=== PATIENT | male | born 1975 | race Caucasian/White ===

== ENCOUNTER 2016-12-05 18:12 | Emergency (ER) | payer BC, OTHER ==
[~2016-12-05] VITALS: Ht 172.7 cm; Wt 104.3 kg
[2016-12-05] MEDS ORDERED: RAMI10CA PO (18:21)
[2016-12-05] MEDS ORDERED: OMEP40CA2 PO (18:21)
[2016-12-05] MEDS ORDERED: METF500T4 PO (18:21)
--- NOTE | 2016-12-05 19:10 | ED PDOC ---
Post-Departure Follow-Up Patient presents to the ED for evaluation of an abscess in the right groin area. He states he initially noted a "bump" 3 days ago. His pulled out a couple of hairs that appeared ingrown. Since then, the area has grown in size and redness. He denies any fever but states he doesn't feel well. The remainder of his H&P and ROS are as noted on the T-sheet. The area was outlined , with a skin marker, for easier objective serial exams. CBC, BMP, ESR, CRP were obtained to evaluate severity of infection. He was medicated with Bactrim DS and Keflex. FRANCISCO OWENS. CARLTON Dec 05, 2016 19:10
[2016-12-05] MEDS ORDERED: CEPHALEXIN 500 MG CAP PO ONE (19:15)
[2016-12-05] MEDS ORDERED: BACTRIM 160MG/800MG DS TAB PO ONE (19:15)
[2016-12-05 19:37] LABS: BASO % 0.3 % (0.0-1.0); EOS # 0.2 K/mm3 (0.0-0.50); LARGE UNSTAINED CELL # 0.2 K/mm3 (0.0-0.4); LARGE UNSTAINED CELL % 1.5 % (0.0-4.0); LYMPH # 2.8 K/mm3 (1.5-4.5); LYMPH % 22.6 % (24.0-44.0); MEAN CORPUSCULAR HEMOGLOBIN 31.5 pg (27.0-33.0); MEAN CORPUSCULAR HGB CONC 34.3 g/dl (32.0-36.5); MONO # 0.7 K/mm3 (0.0-0.8); MONO % 6.2 % (0.0-5.0); NEUTROPHILS # 7.9 K/mm3 (1.8-7.7); NEUTROPHILS % 67.4 % (36.0-66.0); PLATELET COUNT, AUTOMATED 201 k/mm3 (150-450); RED CELL DISTRIBUTION WIDTH 13.2 % (11.5-14.5); WHITE BLOOD COUNT 11.7 K/mm3 (4.0-10.0)
[2016-12-05 19:46] LABS: ANION GAP 6 MEQ/L (8-16); BLOOD UREA NITROGEN 13 MG/DL (7-18); CALCIUM LEVEL 9.1 MG/DL (8.5-10.1); CARBON DIOXIDE LEVEL 30 MEQ/L (21-32); CHLORIDE LEVEL 101 MEQ/L (98-107); CREATININE FOR GFR 0.82 MG/DL (0.70-1.30); GLOMERULAR FILTRATION RATE > 60.0 (>60); GLUCOSE, FASTING 126 MG/DL (70-105); POTASSIUM SERUM 4.1 MEQ/L (3.5-5.1); SODIUM LEVEL 137 MEQ/L (136-145)
[2016-12-05 19:55] LABS: ERYTHROCYTE SEDIMENTATION RATE 26 mm/hr (0-15)
[2016-12-05] MEDS ORDERED: KEFL500C7 PO (20:13)
[2016-12-05] MEDS ORDERED: BACT800T5 PO (20:13)
--- NOTE | 2016-12-05 20:17 | ED PDOC ---
Post-Departure Follow-Up Discussed lab results and discharge plan with the patient. Instructed to monitor abscess and return to the ED if it gets larger, more painful, he runs a fever. Prescribed Bactrim DS and Keflex. Advised to use Ibuprofen and Tylenol as needed for pain. Questions answered. Patient states understanding to the instructions. FRANCISCO OWENS Dec 05, 2016 20:17
[2016-12-05 20:41] VITALS: BP 147/77
== END 2016-12-05 20:51 | disposition home or self-care (01) ==
LOC: M ED 19:17
DX: L02.214 Cutaneous abscess of groin (principal); L03.313 Cellulitis of chest wall; E11.9 Type 2 diabetes mellitus without complications; Z79.84 Long term (current) use of oral hypoglycemic drugs; Z79.899 Other long term (current) drug therapy; Z88.8 Allergy status to other drugs, medicaments and biological substances

== ENCOUNTER 2017-02-18 17:41 | Emergency (ER) | payer BC ==
[~2017-02-18] VITALS: Ht 172.7 cm; Wt 109.1 kg
[~2017-02-18 17:41] MED LIST: BACT800T5 PO; KEFL500C17 PO; METF500T4 PO; OMEP40CA2 PO; RAMI10CA PO
[2017-02-18] MEDS ORDERED: LIDOCAINE 2% MDV 20 ML VIAL SC ONE (19:45)
[2017-02-18] MEDS ORDERED: PERCOCET 5MG/325MG TAB PO ONE (19:45)
[2017-02-18 20:37] VITALS: BP 138/76
== END 2017-02-18 20:58 | disposition home or self-care (01) ==
LOC: M ED 17:41
DX: L02.214 Cutaneous abscess of groin (principal); E11.9 Type 2 diabetes mellitus without complications; I10 Essential (primary) hypertension; K21.9 Gastro-esophageal reflux disease without esophagitis; Z79.899 Other long term (current) drug therapy; Z79.84 Long term (current) use of oral hypoglycemic drugs; Z79.2 Long term (current) use of antibiotics

== ENCOUNTER 2017-02-20 18:14 | Emergency (ER) | payer BC ==
[~2017-02-20] VITALS: Ht 172.7 cm; Wt 109.1 kg
[2017-02-20] MEDS ORDERED: BACTRIM 160MG/800MG DS TAB PO ONE (21:15)
[2017-02-20] MEDS ORDERED: IBUPROFEN 800 MG TAB PO ONE (21:30)
[2017-02-20] MEDS ORDERED: BACT800T5 PO (22:19)
[2017-02-20] MEDS ORDERED: HYDR-3713 PO (22:19)
--- NOTE | 2017-02-20 22:20 | REPUSA ---
Clinical history: right groin abscess. Findings: Real-time ultrasound imaging of the right groin region was performed. Normal heterogeneous fibroglandular tissue is noted. No focal defined mass or cystic lesion is appreciated. No evidence of calcifications are appreciated. No other gross abnormalities. Impression: Unremarkable examination. No abscess or fluid collection is identified.
[2017-02-20 22:24] VITALS: BP 149/78
[2017-02-20] MEDS ORDERED: NORCO 5/325MG TABLET (BULK FOR ED) PO ONE (22:30)
== END 2017-02-20 22:31 | disposition home or self-care (01) ==
LOC: M ED 18:14
DX: L03.314 Cellulitis of groin (principal); A49.02 Methicillin resistant Staphylococcus aureus infection, unspecified site; E11.9 Type 2 diabetes mellitus without complications; I10 Essential (primary) hypertension; K21.9 Gastro-esophageal reflux disease without esophagitis; E66.9 Obesity, unspecified; Z79.899 Other long term (current) drug therapy; Z79.2 Long term (current) use of antibiotics; Z79.84 Long term (current) use of oral hypoglycemic drugs

== ENCOUNTER 2017-03-13 11:37 | Outpatient (CLI) | payer BC ==
[~2017-03-13] VITALS: Ht 172.7 cm; Wt 108.9 kg
[~2017-03-13 11:37] MED LIST changes: +HYDR-3713 PO
[2017-03-13] MEDS ORDERED: NS 1,000 ML IV ONE (11:45)
[2017-03-13] MEDS ORDERED: LIDOCAINE 2% INJ 100 MG/5 ML SDV (FOR ANES.) As Ordered ONE ×2 (13:20→13:41)
[2017-03-13] MEDS ORDERED: PROPOFOL 200 MG/20 ML VIAL As Ordered ONE ×2 (13:20→13:38)
--- NOTE | 2017-03-13 13:47 | ROOR ---
Patient Name: Walter Cisneros Procedure Date: 03/13/2017 1:05 PM Date of : 1975 Age: 41 Room: [facility] Gender: Male Note Status: Finalized Procedure: Upper GI endoscopy Indications: Suspected esophageal reflux Providers: Rio Kathleen MD Referring MD: Gregor Martin NP Requesting Provider: Medicines: Monitored Anesthesia Care Complications: No immediate complications. Procedure: Pre-Anesthesia Assessment: - Prior to the procedure, a History and Physical was performed, and patient medications and allergies were reviewed. The patient is competent. The risks and benefits of the procedure and the sedation options and risks were discussed with the patient. All questions were answered and informed consent was obtained. Patient identification and proposed procedure were verified by the physician, the nurse and the window shade ring sewer in the procedure room. Mental Status Examination: alert and oriented. Airway Examination: normal oropharyngeal airway and neck mobility. Respiratory Examination: clear to auscultation. CV Examination: normal. Prophylactic Antibiotics: The patient does not require prophylactic antibiotics. Prior Anticoagulants: The patient has taken no previous anticoagulant or antiplatelet agents. ASA Grade Assessment: II - A patient with mild systemic disease. After reviewing the risks and benefits, the patient was deemed in satisfactory condition to undergo the procedure. The anesthesia plan was to use monitored anesthesia care (MAC). Immediately prior to administration of medications, the patient was re-assessed for adequacy to receive sedatives. The heart rate, respiratory rate, oxygen saturations, blood pressure, adequacy of pulmonary ventilation, and response to care were monitored throughout the procedure. The physical status of the patient was re-assessed after the procedure. The Endoscope was introduced through the mouth, and advanced to the second part of duodenum. The upper GI endoscopy was accomplished without difficulty. The patient tolerated the procedure well. Findings: The examined esophagus was normal. Two biopsies were obtained in the lower third of the esophagus with cold forceps for histology. Verification of patient identification for the specimen was done by the physician and nurse using the patient's name, date and medical record number. Estimated blood loss was minimal. Localized mild inflammation characterized by erythema and granularity was found in the gastric antrum. Biopsies were taken with a cold forceps for histology. The duodenal bulb and second portion of the duodenum were normal. Impression: - Normal esophagus. - Gastritis. Biopsied. - Normal duodenal bulb and second portion of the duodenum. - Two biopsies were obtained in the lower third of the esophagus. Recommendation: - Patient has a contact number available for emergencies. The signs and symptoms of potential delayed complications were discussed with the patient. Return to normal activities tomorrow. Written discharge instructions were provided to the patient. - Resume previous diet. - Continue present medications. - Return to GI clinic as previously scheduled on 03/27/2017 at 8:30 AM. - Return to primary care physician. Rio Kathleen MD Rio Kathleen MD 03/13/2017 1:47:29 PM This report has been signed electronically. Number of Addenda: 0 Note Initiated On: 03/13/2017 1:05 PM Estimated Blood Loss: Estimated blood loss was minimal.
--- NOTE | 2017-03-13 13:52 | ROOR ---
Patient Name: Walter Cisneros Procedure Date: 03/13/2017 1:06 PM Date of : 1975 Age: 41 Room: [facility] Gender: Male Note Status: Finalized Procedure: Colonoscopy Indications: Follow-up of diverticulitis Providers: Rio Kathleen MD Referring MD: Gregor Martin NP Requesting Provider: Medicines: Monitored Anesthesia Care Complications: No immediate complications. Procedure: Pre-Anesthesia Assessment: - Prior to the procedure, a History and Physical was performed, and patient medications and allergies were reviewed. The patient is competent. The risks and benefits of the procedure and the sedation options and risks were discussed with the patient. All questions were answered and informed consent was obtained. Patient identification and proposed procedure were verified by the physician, the nurse and the engineering and operations director in the procedure room. Mental Status Examination: alert and oriented. Airway Examination: normal oropharyngeal airway and neck mobility. Respiratory Examination: clear to auscultation. CV Examination: normal. Prophylactic Antibiotics: The patient does not require prophylactic antibiotics. Prior Anticoagulants: The patient has taken no previous anticoagulant or antiplatelet agents. ASA Grade Assessment: II - A patient with mild systemic disease. After reviewing the risks and benefits, the patient was deemed in satisfactory condition to undergo the procedure. The anesthesia plan was to use monitored anesthesia care (MAC). Immediately prior to administration of medications, the patient was re-assessed for adequacy to receive sedatives. The heart rate, respiratory rate, oxygen saturations, blood pressure, adequacy of pulmonary ventilation, and response to care were monitored throughout the procedure. The physical status of the patient was re-assessed after the procedure. The Colonoscope was introduced through the anus and advanced to the cecum, identified by appendiceal orifice and ileocecal valve. The colonoscopy was performed without difficulty. The patient tolerated the procedure well. The quality of the bowel preparation was good. The ileocecal valve, appendiceal orifice, and rectum were photographed. Scope insertion time was 4 minutes. Scope withdrawal time was 10 minutes. The total duration of the procedure was 15 minutes. Findings: The perianal and digital rectal examinations were normal. A 10 mm polyp was found in the sigmoid colon. The polyp was sessile. The polyp was removed with a hot snare. Resection and retrieval were complete. Verification of patient identification for the specimen was done by the physician and nurse using the patient's name, date and medical record number. To close a defect after polypectomy, one hemostatic clip was successfully placed. There was no bleeding at the end of the procedure. Two sessile polyps were found in the rectum. The polyps were 3 to 4 mm in size. These polyps were removed with a jumbo cold forceps. Resection and retrieval were complete. Multiple small and large-mouthed diverticula were found in the sigmoid colon. There was no evidence of diverticular bleeding. Non-bleeding external and internal hemorrhoids were found during retroflexion. The hemorrhoids were small. Impression: - One 10 mm polyp in the sigmoid colon, removed with a hot snare. Resected and retrieved. Clip was placed. - Two 3 to 4 mm polyps in the rectum, removed with a jumbo cold forceps. Resected and retrieved. - Moderate diverticulosis in the sigmoid colon. There was no evidence of diverticular bleeding. - Non-bleeding external and internal hemorrhoids. Recommendation: - Patient has a contact number available for emergencies. The signs and symptoms of potential delayed complications were discussed with the patient. Return to normal activities tomorrow. Written discharge instructions were provided to the patient. - High fiber diet. - Continue present medications. - Await pathology results. - Repeat colonoscopy in 3 - 5 years for surveillance based on pathology results. - Return to GI clinic as previously scheduled on 03/27/2017 at 8:30 AM. - Return to primary care physician. Rio Kathleen MD Rio Kathleen MD 03/13/2017 1:52:08 PM This report has been signed electronically. Number of Addenda: 0 Note Initiated On: 03/13/2017 1:06 PM Estimated Blood Loss: Estimated blood loss was minimal.
[2017-03-13 14:10] VITALS: BP 153/93
== END 2017-03-13 14:32 | disposition home or self-care (01) ==
LOC: M OPP 11:37
PROVIDERS: ATTEND Internal Medicine Gastroenterology
DX: K63.5 Polyp of colon (principal); K62.1 Rectal polyp; K57.30 Diverticulosis of large intestine without perforation or abscess without bleeding; K64.8 Other hemorrhoids; K21.9 Gastro-esophageal reflux disease without esophagitis; K29.70 Gastritis, unspecified, without bleeding; I10 Essential (primary) hypertension; R06.83 Snoring; Z88.8 Allergy status to other drugs, medicaments and biological substances; Z79.84 Long term (current) use of oral hypoglycemic drugs; Z79.899 Other long term (current) drug therapy

== ENCOUNTER 2017-03-31 20:11 | Emergency (ER) | payer BC ==
[~2017-03-31] VITALS: Ht 172.7 cm; Wt 109.1 kg
--- NOTE | 2017-03-31 22:00 | REPUSA ---
Clinical history: Pain. Findings: Real-time ultrasound imaging of the testicles and scrotum was performed. The right testicle measures 4.5 x 2.5 x 3.6 cm. The left testicle measures 4.7 x 2.8 x 3.6 cm. The testicles demonstrat e normal echo texture and echogenicity. Normal color Doppler flow and arterial waveforms are seen faye aterally. There are small bilateral hydroceles appreciated. Impression: Unremarkable ultrasound examination of the testicles. Small bilateral hydroceles.
[2017-03-31 23:46] VITALS: BP 158/93
== END 2017-03-31 23:47 | disposition home or self-care (01) ==
LOC: M ED 20:11
DX: N50.812 Left testicular pain (principal); E11.9 Type 2 diabetes mellitus without complications; R03.0 Elevated blood-pressure reading, without diagnosis of hypertension; Z79.84 Long term (current) use of oral hypoglycemic drugs; Z79.899 Other long term (current) drug therapy; Z88.8 Allergy status to other drugs, medicaments and biological substances; Z87.19 Personal history of other diseases of the digestive system

== ENCOUNTER 2018-08-12 18:17 | Emergency (ER) | payer BC ==
[~2018-08-12] VITALS: Ht 172.7 cm; Wt 104.5 kg
[~2018-08-12 18:17] MED LIST changes: -RAMI10CA PO; +RAMI1CAP26 PO
[2018-08-12 18:18] VITALS: BP 146/70
[2018-08-12] MEDS ORDERED: ATOR1TAB19 (18:23)
[2018-08-12] MEDS ORDERED: SOMA350T PO ×2 (19:08)
[2018-08-12] MEDS ORDERED: IBUP-1022 PO (19:08)
== END 2018-08-12 19:14 | disposition home or self-care (01) ==
LOC: M ED 18:17
DX: M54.5 Low back pain (principal); I10 Essential (primary) hypertension; K21.9 Gastro-esophageal reflux disease without esophagitis; Z79.899 Other long term (current) drug therapy; Z88.8 Allergy status to other drugs, medicaments and biological substances

== ENCOUNTER → 2019-08-11 | Outpatient (REF) | payer BC ==
[~2019-08-11] MED LIST changes: +ATOR1TAB19; +IBUP-1022 PO; +METF-791 PO; -METF500T4 PO; -OMEP40CA2 PO; +OMEP40CA97 PO; +SOMA350T PO
== END ==
LOC: M SFHCPLAZ 14:19
DX: Z76.89 Persons encountering health services in other specified circumstances (principal); Z13.1 Encounter for screening for diabetes mellitus; Z71.89 Other specified counseling

== ENCOUNTER → 2020-08-17 | Outpatient (REF) | payer BC ==
[~2020-08-17] MED LIST changes: -METF-791 PO; +METF-838 PO
== END ==
LOC: M SFHCPLAZ 11:11
PROVIDERS: ATTEND Family Medicine
DX: Z00.00 Encounter for general adult medical examination without abnormal findings (principal); Z71.89 Other specified counseling; Z13.1 Encounter for screening for diabetes mellitus

== ENCOUNTER → 2021-08-05 | Outpatient (CLI) | payer BC ==
[~2021-08-05] MED LIST changes: +ATOR40TA75 PO; +CHLO125TA PO; +IBUP80TA PO; +METF-818 PO; +OMEP-173 PO; +OMEP40CA4 PO; -OMEP40CA97 PO; +RAMI1CAP24 PO; +TRUL10IN SC
== END ==
LOC: M LABSMTC 09:25
PROVIDERS: ATTEND Anesthesiology
DX: Z01.812 Encounter for preprocedural laboratory examination (principal); Z11.52 Encounter for screening for COVID-19

== ENCOUNTER 2021-08-09 06:21 | Day surgery (SDC) | payer BC ==
[~2021-08-09] VITALS: Ht 172.7 cm; Wt 102.5 kg
[~2021-08-09 06:21] MED LIST changes: +NS 1,000 ML IV ONE
[2021-08-09] MEDS ORDERED: LIDOCAINE 2% 100MG/5ML SDV (FOR ANES.) As Ordered ONE (06:32)
[2021-08-09] MEDS ORDERED: propofoL 200 MG/20 ML VIAL As Ordered ONE (06:32)
[2021-08-09 08:25] VITALS: BP 127/79
== END 2021-08-09 08:36 | disposition home or self-care (01) ==
LOC: M OPP 06:21
PROVIDERS: ATTEND Internal Medicine Gastroenterology
DX: Z12.11 Encounter for screening for malignant neoplasm of colon (principal); Z80.0 Family history of malignant neoplasm of digestive organs; K62.1 Rectal polyp; K57.30 Diverticulosis of large intestine without perforation or abscess without bleeding; K64.8 Other hemorrhoids; E11.9 Type 2 diabetes mellitus without complications; Z79.84 Long term (current) use of oral hypoglycemic drugs; Z79.899 Other long term (current) drug therapy; Z88.6 Allergy status to analgesic agent

== ENCOUNTER 2023-05-15 15:47 | Emergency (ER) | payer BC ==
[~2023-05-15] VITALS: Ht 172.7 cm; Wt 99.1 kg
[~2023-05-15 15:47] MED LIST changes: -NS 1,000 ML IV ONE
[2023-05-15] MEDS ORDERED: methocarbamoL 500 MG TAB PO ONE (16:35)
[2023-05-15] MEDS ORDERED: ACETAMINOPHEN *IV* 1,000 MG in IV 1 EA IV ONE (16:35)
[2023-05-15 16:59] VITALS: BP 133/72; TEMP 98.4; O2SAT 93
[2023-05-15 17:21] LABS: BASO % 0.2 % (0.0-1.0); HEMATOCRIT 44.7 % (42.0-52.0); HEMOGLOBIN 15.4 g/dl (13.5-17.5); LYMPH # 1.3 10^3/uL (1.5-5.0); LYMPH % 11.6 % (24.0-44.0); MEAN CORPUSCULAR HEMOGLOBIN 31.5 pg (27.0-33.0); MEAN CORPUSCULAR HGB CONC 34.5 g/dl (32.0-36.5); MEAN CORPUSCULAR VOLUME 91.4 fl (80.0-96.0); MONO # 0.6 10^3/uL (0.0-0.8); MONO % 5.4 % (2.0-8.0); NEUTROPHILS # 9.5 10^3/uL (1.5-8.5); NEUTROPHILS % 82.5 % (36.0-66.0); PLATELET COUNT, AUTOMATED 255 10^3/uL (150-450); RED BLOOD COUNT 4.89 10^6/uL (4.30-6.10); WHITE BLOOD COUNT 11.5 10^3/uL (4.0-10.0)
[2023-05-15 17:29] LABS: LIPASE 32 U/L (12-53)
[2023-05-15 17:31] LABS: ALBUMIN 3.9 G/DL (3.2-5.2); ALKALINE PHOSPHATASE 102 U/L (46-116); ALT/SGPT 36 U/L (7.0-40); AST/SGOT 16 U/L (<34); BILIRUBIN,DIRECT 0.1 MG/DL (<0.4); BILIRUBIN,TOTAL 0.4 MG/DL (0.3-1.2); BLOOD UREA NITROGEN 19 MG/DL (9-23); CALCIUM LEVEL 9.5 MG/DL (8.5-10.1); CARBON DIOXIDE LEVEL 24 MMOL/L (20-31); CHLORIDE LEVEL 101 MMOL/L (98-107); CREATININE FOR GFR 0.65 MG/DL (0.70-1.30); GLOMERULAR FILTRATION RATE > 60.0 (>60); GLUCOSE, FASTING 178 MG/DL (60-100); POTASSIUM SERUM 4.2 MMOL/L (3.5-5.1); SODIUM LEVEL 135 MMOL/L (136-145); TOTAL PROTEIN 7.4 G/DL (5.7-8.2)
[2023-05-15] MEDS ORDERED: MIRA3350 PO ×2 (18:11→18:30)
[2023-05-15] MEDS ORDERED: METH-1164 PO ×2 (18:11→18:30)
== END 2023-05-15 18:22 | disposition home or self-care (01) ==
LOC: M ED 15:47
DX: K59.00 Constipation, unspecified (principal); M54.9 Dorsalgia, unspecified; K21.9 Gastro-esophageal reflux disease without esophagitis; K57.30 Diverticulosis of large intestine without perforation or abscess without bleeding; Z79.899 Other long term (current) drug therapy; Z88.6 Allergy status to analgesic agent
CPT/HCPCS: 74176; 80048; 80076; 81001; 83690; 85025; 96365; 99284; J0131

== ENCOUNTER 2023-12-02 15:42 | Emergency (ER) | payer BC ==
[~2023-12-02] VITALS: Ht 172.7 cm; Wt 99.0 kg
[~2023-12-02 15:42] MED LIST changes: +METH-1164 PO; +MIRA3350 PO; +RAMI10CA64 PO; -RAMI1CAP24 PO; -RAMI1CAP26 PO; +RAMI5CAP60 PO
[2023-12-02] MEDS ORDERED: DOXE6TAB (16:06)
[2023-12-02] MEDS ORDERED: DULA3PEN (16:06)
[2023-12-02 17:22] LABS: BASO % 0.3 % (0.0-1.0); EOS # 0.2 10^3/uL (0.0-0.5); EOS % 1.4 % (0.0-3.0); HEMATOCRIT 44.9 % (42.0-52.0); HEMOGLOBIN 15.7 g/dl (13.5-17.5); LYMPH # 2.4 10^3/uL (1.5-5.0); LYMPH % 20.2 % (24.0-44.0); MEAN CORPUSCULAR HEMOGLOBIN 30.7 pg (27.0-33.0); MEAN CORPUSCULAR VOLUME 87.9 fl (80.0-96.0); MONO # 1.4 10^3/uL (0.0-0.8); MONO % 12.1 % (2.0-8.0); NEUTROPHILS # 7.8 10^3/uL (1.5-8.5); NEUTROPHILS % 65.5 % (36.0-66.0); PLATELET COUNT, AUTOMATED 215 10^3/uL (150-450); RED BLOOD COUNT 5.11 10^6/uL (4.30-6.10); WHITE BLOOD COUNT 11.8 10^3/uL (4.0-10.0)
[2023-12-02 17:45] LABS: LIPASE 44 U/L (12-53)
[2023-12-02 17:47] LABS: ALBUMIN 3.9 G/DL (3.2-5.2); ALKALINE PHOSPHATASE 155 U/L (46-116); ALT/SGPT 44 U/L (7.0-40); AST/SGOT 24 U/L (<34); BILIRUBIN,DIRECT 0.3 MG/DL (<0.4); BLOOD UREA NITROGEN 11 MG/DL (9-23); CALCIUM LEVEL 9.7 MG/DL (8.5-10.1); CARBON DIOXIDE LEVEL 31 MMOL/L (20-31); CHLORIDE LEVEL 96 MMOL/L (98-107); CREATININE FOR GFR 0.82 MG/DL (0.70-1.30); GLOMERULAR FILTRATION RATE > 60.0 (>60); GLUCOSE, FASTING 138 MG/DL (60-100); POTASSIUM SERUM 3.6 MMOL/L (3.5-5.1); SODIUM LEVEL 133 MMOL/L (136-145); TOTAL PROTEIN 7.5 G/DL (5.7-8.2)
[2023-12-02] MEDS ORDERED: ISOVUE-370 76% 100ML VIAL As Ordered ONE (19:39)
[2023-12-02] MEDS: NS 1,000 ML IV ONE (20:08)
[2023-12-02] MEDS ORDERED: AMOX875T2 PO (20:38)
[2023-12-02] MEDS: PIPERACILLIN/TAZOBACTAM SOD 3.375 GM in D5W MINI-BAG PLUS 50 ML IV ONE (20:39)
[2023-12-02 22:49] VITALS: BP 132/79; TEMP 97.7; O2SAT 96
== END 2023-12-02 22:52 | disposition home or self-care (01) ==
LOC: M ED 15:42
DX: K57.92 Diverticulitis of intestine, part unspecified, without perforation or abscess without bleeding (principal); I10 Essential (primary) hypertension; Z88.8 Allergy status to other drugs, medicaments and biological substances; Z79.2 Long term (current) use of antibiotics; Z79.84 Long term (current) use of oral hypoglycemic drugs; Z79.899 Other long term (current) drug therapy
CPT/HCPCS: 74177; 80048; 80076; 83690; 85025; 96365; 96366; 99284; J2543; Q9967

== ENCOUNTER → 2024-05-19 | Outpatient (REF) | payer BC ==
[~2024-05-19] MED LIST changes: +AMOX875T2 PO; +DOXE6TAB; +DULA3PEN; +METF-1157 PO; -METF-818 PO
== END ==
LOC: M SFHCPLAZ 13:45
DX: Z53.20 Procedure and treatment not carried out because of patient's decision for unspecified reasons (principal); I10 Essential (primary) hypertension

== ENCOUNTER → 2024-07-26 | Outpatient (REF) | payer BC | LOC: M SFHCPLAZ 11:39 | PROVIDERS: ATTEND Family Medicine | DX: G47.33 Obstructive sleep apnea (adult) (pediatric) (principal); G47.00 Insomnia, unspecified; K21.9 Gastro-esophageal reflux disease without esophagitis; E11.9 Type 2 diabetes mellitus without complications; Z53.9 Procedure and treatment not carried out, unspecified reason ==

== ENCOUNTER → 2024-09-27 | Outpatient (REF) | payer BC | LOC: M SFHCPLAZ 18:42 | DX: Z53.9 Procedure and treatment not carried out, unspecified reason (principal) ==

== ENCOUNTER → 2024-11-02 | Outpatient (REF) | payer BC | LOC: M SFHCPLAZ 08:10 | PROVIDERS: ATTEND Family Medicine | DX: Z53.9 Procedure and treatment not carried out, unspecified reason (principal) ==

== ENCOUNTER → 2025-01-03 | Outpatient (CLI) | payer BC | LOC: M RAD 10:11 | DX: Z13.6 Encounter for screening for cardiovascular disorders (principal) ==

== ENCOUNTER → 2025-01-24 | Outpatient (REF) | payer BC | LOC: M SFHCPLAZ 19:37 | DX: E11.9 Type 2 diabetes mellitus without complications (principal); E78.5 Hyperlipidemia, unspecified ==

== ENCOUNTER → 2025-02-22 | Outpatient (REF) | payer BC ==
[~2025-02-22] MED LIST changes: -IBUP-1022 PO; +IBUP600T42 PO
== END ==
LOC: M SFHCPLAZ 08:16
PROVIDERS: ATTEND Family Medicine
DX: Z53.9 Procedure and treatment not carried out, unspecified reason (principal)